=== PATIENT | female | born 1965 | race Caucasian/White ===

== ENCOUNTER 2019-03-30 18:28 | Emergency (ER) | payer BC ==
--- NOTE | 2019-03-30 18:48 | ED Physician Documentation ---
General Adult - HISTORIAN Historian: patient - HPI Stated Complaint: fall and ankle twist with swelling and pain Chief Complaint: Ankle Injury Onset: hours (1) Timing: still present Severity: moderate Further Comments: yes (She states she was walking on a side walk /uneven area and her ankle slipped off and she felt it went sideways causing instant pain and swelling. No other injury.) - ROS CONST: no problems - PAST HX Past History: none Immunizations: UTD Allergies/Adverse Reactions: Allergies Allergy/AdvReac Type Severity Reaction Status Date / Time Penicillins Allergy Rash Verified 03/30/19 18:49 Home Medications: Ambulatory Orders Medication Instructions Recorded Albuterol Sulfate [Albuterol 1 puff INH Q4H PRN 03/30/19 Sulfate Hfa] Beclomethasone Dipropionate [Qvar 1 puff INH DAILY 03/30/19 Redihaler] Loratadine [Claritin] 10 mg PO DAILY 03/30/19 predniSONE [Radha] 5 mg PO DAILY 03/30/19 - SOCIAL HX Smoking History: non-smoker Alcohol Use: none Drug Use: none - FAMILY HX Family History: No - REVIEWED ASSESSMENTS Nursing Assessment Reviewed: Yes Vitals Reviewed: Yes Progress - Progress Progress: 2020: discussed results with pt and family after discussing with Dr Rosado. He will see pt in am DG ED Results Lab/Radiology - Radiology Radiology Impressions: Three views of the left foot Clinical history: Twisting injury. Pain. Findings: Examination of the left foot in plantar, lateral and oblique views fails to demonstrate evidence of fracture, dislocation or other bone or joint pathology. Electronically signed on March 30, 2019 7:19:20 PM CDT by: Alexander Acevedo Three views of the left ankle Clinical history: Twisting injury. Pain. Findings: Examination left ankle in AP, lateral and oblique views demonstrates a transverse fracture of the distal fibula. Soft tissue swelling overlies the lateral malleolus. Ankle mortise is anatomic. Impression: 1. Minimally displaced transverse fracture of the distal fibula. Electronically signed on March 30, 2019 7:17:54 PM CDT by: Alexander Acevedo General Adult Physical Exam - PHYSICAL EXAM GENERAL APPEARANCE: no distress EENT: eye inspection normal, ENT inspection normal, no signs of dehydration NECK: normal inspection RESPIRATORY: no resp distress, chest non-tender, breath sounds normal CVS: reg rate & rhythm, heart sounds normal ABDOMEN: soft, normal bowel sounds, no distension BACK: normal inspection SKIN: warm/dry, normal color EXTREMITIES: non-tender, edema (left ankle Pulses + sensation + cap refill + no open areas. - painful ROM with any movement at ankle ), other (left lower leg/ankle with swelling. No obvious lacerations - no open areas. Color normal warm. pink. pulses + ) NEURO: oriented X3 Discharge Clincal Impression: Displaced fracture of distal end of fibula Referrals: Primary Doctor,No [Primary Care Provider] - 2 Days Comments: 1. Call office in am for appt tomorrow with Dr Rosado [phone] 2. NO WEIGHT BEARING 3. Keep splint intact 4. Elevate 5. Hydrocodone 5/300mg take 1 by mouth every 8 hours as needed for pain (one sent home for pharm hours) 6. Return to ER for any increasing concerns Condition: Stable Disposition: 01 HOME, SELF-CARE Decision to Admit: NO Date of Decison to Admit: 03/30/19 Decision Time: 20:30
[2019-03-30] MEDS: HYDROcodone /APAP 5/325 1 EACH TABLET PO ONE ×2 (19:40)
[2019-03-30 20:37] VITALS: BP 118/70
--- NOTE | 2019-03-31 06:00 | Diagnostic Imaging Report ---
SHAYNA DAVILA [facility] [id number] [facility] [address] [place], [place]. [address] Report Submission Date: March 30, 2019 7:19:20 PM CDT Patient Study Name: SHAYNA BLAKE Date: March 30, 2019 6:48:36 PM CDT Modality Type: DX Gender: F Description: FOOT 3 VIEWS OR MORE : 65 Institution: [facility] Physician: SHAYNA DAVILA Three views of the left foot Clinical history: Twisting injury. Pain. Findings: Examination of the left foot in plantar, lateral and oblique views fails to demonstrate evidence of fracture, dislocation or other bone or joint pathology. Electronically signed on March 30, 2019 7:19:20 PM CDT by: Alexander KHALIL
--- NOTE | 2019-03-31 06:01 | Diagnostic Imaging Report ---
SHAYNA DAVILA [facility] [id number] [address] [facility] [address] [place], [place]. [address] Report Submission Date: March 30, 2019 7:17:54 PM CDT Patient Study Name: SHAYNA BLAKE Date: March 30, 2019 6:48:36 PM CDT Modality Type: DX Gender: F Description: ANKLE 3 VIEWS OR MORE : 65 Institution: [facility] Physician: SHAYNA DAVILA Three views of the left ankle Clinical history: Twisting injury. Pain. Findings: Examination left ankle in AP, lateral and oblique views demonstrates a transverse fracture of the distal fibula. Soft tissue swelling overlies the lateral malleolus. Ankle mortise is anatomic. Impression: 1. Minimally displaced transverse fracture of the distal fibula. Electronically signed on March 30, 2019 7:17:54 PM CDT by: Alexander KHALIL
== END 2019-03-30 20:22 | disposition home or self-care (01) ==
LOC: ED 18:28
DX: S82.832A Other fracture of upper and lower end of left fibula, initial encounter for closed fracture (principal); W18.43XA Slipping, tripping and stumbling without falling due to stepping from one level to another, initial encounter; Y93.01 Activity, walking, marching and hiking; Y92.480 Sidewalk as the place of occurrence of the external cause
CPT/HCPCS: 29515; 73610; 73630; 99283; 99284; A9270